=== PATIENT | female | born 1950 | race Hispanic/Latino ===

== ENCOUNTER 2017-12-19 10:45 | Outpatient (CLI) | payer MEDICARE, OTHER ==
--- NOTE | 2017-12-19 12:12 | RAD ---
THREE VIEWS RIGHT FOOT: Date: 12-19-17 History: Right foot pain. FINDINGS: No acute fracture or dislocation is seen. Posterior and plantar calcaneal enthesophytes are seen. Min imal degenerative changes are seen at the talonavicular joint. There is mild subcutaneous soft tissue swelling seen at the dorsal aspect of the forefoot. IMPRESSION: 1. Minimal subcutaneous soft tissue swelling, but no acute osseous abnormality seen involving the rig ht foot. POS: GIFTY
== END 2017-12-19 10:46 | disposition home or self-care (01) ==
LOC: RAD-FRANK 10:45
PROVIDERS: ATTEND Nurse Practitioner Family
DX: M79.671 Pain in right foot (principal); M79.89 Other specified soft tissue disorders

== ENCOUNTER 2018-05-18 13:29 | Outpatient (CLI) | payer MEDICARE, OTHER | END 2018-05-18 13:30 | disposition home or self-care (01) | LOC: BICMAMMO 13:29 | PROVIDERS: ATTEND Nurse Practitioner Family | DX: Z12.31 Encounter for screening mammogram for malignant neoplasm of breast (principal); Z80.3 Family history of malignant neoplasm of breast | CPT/HCPCS: 77063; 77067 ==

== ENCOUNTER 2019-02-06 14:59 | Outpatient (CLI) | payer MEDICARE ==
--- NOTE | 2019-02-06 15:10 | RAD ---
XR Foot Lt 3 View STANDARD HISTORY: left foot pain FINDINGS: No fracture or dislocation is identified. Posterior and plantar calcaneal spurs are present.
== END 2019-02-06 15:00 | disposition home or self-care (01) ==
LOC: RAD-FRANK 14:59
PROVIDERS: ATTEND Nurse Practitioner Family
DX: M79.672 Pain in left foot (principal); M77.32 Calcaneal spur, left foot

== ENCOUNTER 2019-05-24 14:07 | Outpatient (CLI) | payer MEDICARE ==
--- NOTE | 2019-05-24 14:37 | MMO ---
Bilateral MAMMO Bilat Screen [facility]. CLINICAL HISTORY: Patient is 69 years old and is seen for screening. The patient has the following family history of breast cancer: sister. The patient has no personal history of cancer. VIEWS: The views performed were: bilateral craniocaudal with tomosynthesis and bilateral mediolateral oblique with tomosynthesis. FILMS COMPARED: The present examination has been compared to prior imaging studies performed at [facility] on 10/25/2016, 10/29/2016, 05/02/2017 and 05/18/2018. This study has been interpreted with the assistance of computer-aided detection. MAMMOGRAM FINDINGS: There are scattered fibroglandular densities. There are stable benign appearing calcifications seen in both breasts. Nodularity is stable. There are no suspicious masses, suspicious calcifications, or new areas of architectural distortion. IMPRESSION: THERE IS NO MAMMOGRAPHIC EVIDENCE OF MALIGNANCY. A ROUTINE FOLLOW-UP MAMMOGRAM IN 1 YEAR IS RECOMMENDED. THE RESULTS OF THIS EXAM WERE SENT TO THE PATIENT. ACR BI-RADS Category 2 - Benign finding MAMMOGRAPHY NOTE: 1. A negative mammogram report should not delay a biopsy if a dominant of clinically suspicious mass is present. 2. Approximately 10% to 15% of breast cancers are not detected by mammography. 3. Adenosis and dense breasts may obscure an underlying neoplasm. Reported by: MONA ABREU MD Electonically Signed: [id number]
== END 2019-05-24 14:08 | disposition home or self-care (01) ==
LOC: BICMAMMO 14:07
PROVIDERS: ATTEND Nurse Practitioner Family
DX: Z12.31 Encounter for screening mammogram for malignant neoplasm of breast (principal); Z80.3 Family history of malignant neoplasm of breast
CPT/HCPCS: 77063; 77067

== ENCOUNTER 2019-12-04 09:11 | Outpatient (CLI) | payer MEDICARE ==
--- NOTE | 2019-12-04 11:20 | ULT ---
ABDOMINAL ULTRASOUND: Date: 12/04/2019 INDICATION: Abdominal pain. FINDINGS: Patient is status post cholecystectomy. Common bile duct is normal caliber for post cholecystectomy status measuring 8.0 mm. No intrahepatic ductal dilatation. The liver is echogenic, suggesting hepatic steatosis. No focal liver lesion or mass. Visualized aorta and IVC appear unremarkable. The pancreas is mostly obscured, but appears unremarkable as visualized. Spleen is upper normal size and appears unremarkable. Both kidneys are imaged and appear unremarkable. Both kidneys measure 8-9 cm length. IMPRESSION: 1. Evidence of hepatic steatosis. 2. Status post cholecystectomy. POS: AH
== END 2019-12-04 09:12 | disposition home or self-care (01) ==
LOC: BICULT 09:11
PROVIDERS: ATTEND Nurse Practitioner Family
DX: R10.9 Unspecified abdominal pain (principal); K76.0 Fatty (change of) liver, not elsewhere classified; Z90.49 Acquired absence of other specified parts of digestive tract
CPT/HCPCS: 93975

== ENCOUNTER 2020-12-24 10:42 | Outpatient (CLI) | payer MEDICARE | END 2020-12-24 10:43 | disposition home or self-care (01) | LOC: RAD-FRANK 10:42 | PROVIDERS: ATTEND Nurse Practitioner Family | DX: M79.671 Pain in right foot (principal); M79.89 Other specified soft tissue disorders; M25.471 Effusion, right ankle; M25.774 Osteophyte, right foot ==

== ENCOUNTER 2022-08-23 11:29 | Outpatient (CLI) | payer MEDICARE | END 2022-08-23 11:30 | disposition home or self-care (01) | LOC: RAD-FRANK 11:29 | PROVIDERS: ATTEND Nurse Practitioner Family | DX: M79.645 Pain in left finger(s) (principal) ==

== ENCOUNTER 2022-10-20 10:43 | Outpatient (CLI) | payer MEDICARE | END 2022-10-20 10:44 | disposition home or self-care (01) | LOC: BICMAMMO 10:43 | PROVIDERS: ATTEND Nurse Practitioner Family | DX: Z12.31 Encounter for screening mammogram for malignant neoplasm of breast (principal); N64.89 Other specified disorders of breast; Z94.89 Other transplanted organ and tissue status; Z80.3 Family history of malignant neoplasm of breast | CPT/HCPCS: 77063; 77067 ==